=== PATIENT | male | born 1950 | race Two or more races ===

== ENCOUNTER 2021-07-08 13:29 | Inpatient (IN) | payer OTHER ==
[~2021-07-08] VITALS: Ht 177.8 cm; Wt 86.2 kg
[2021-07-08] MEDS ORDERED: LOSARTAN-HCTZ1 EAC1 PO (13:35)
[2021-07-08] MEDS ORDERED: DEPAKOTE ER500 MG PO (13:36)
[2021-07-08] MEDS ORDERED: RESTORIL7.5 MG PO (13:36)
[2021-07-11] MEDS ORDERED: LORAZEPAM2 MG (08:18)
[2021-07-11] MEDS ORDERED: OLANZAPINE20 MG (08:18)
[2021-07-11] MEDS ORDERED: DOXEPIN HCL25 MG (08:18)
[2021-07-11] MEDS ORDERED: ESTAZOLAM2 MG (08:19)
[2021-07-11] MEDS ORDERED: AMITIZA24 MCG (08:19)
[2021-07-14] MEDS ORDERED: ELIQUIS2.5 MG PO (17:03)
[2021-07-14] MEDS ORDERED: PERCOCET 5-3251 EACH PO (17:03)
[2021-07-14] MEDS ORDERED: DUI500 PO (17:03)
== END 2021-07-14 19:27 | DRG 481 ==
LOC: ER 13:29 → SURH 19:13
PROVIDERS: ADMIT Orthopaedic Surgery; ATTEND Orthopaedic Surgery
PROC: 0QS736Z Reposition Left Upper Femur with Intramedullary Internal Fixation Device, Percutaneous Approach (ICD-10-PCS; principal; 2021-07-08)
PROC: 0QU73JZ Supplement Left Upper Femur with Synthetic Substitute, Percutaneous Approach (ICD-10-PCS; 2021-07-08)
PROC: 30233N1 Transfusion of Nonautologous Red Blood Cells into Peripheral Vein, Percutaneous Approach (ICD-10-PCS; 2021-07-09)
DX: S72.142A Displaced intertrochanteric fracture of left femur, initial encounter for closed fracture (principal); D62 Acute posthemorrhagic anemia; Z20.822 Contact with and (suspected) exposure to COVID-19